=== PATIENT | female | born 1960 | race Caucasian/White ===

== ENCOUNTER 2017-01-30 21:20 | Inpatient (IN) | payer BC ==
[2017-01-31] MEDS ORDERED: ONDANSETRON HCL INJ/PF 4 MG/2 ML SDV IV ONE (02:22)
[2017-01-31] MEDS ORDERED: MORPHINE SULFATE 10 MG/ML INJ IV ONE ×2 (02:22→07:03)
[2017-01-31] MEDS ORDERED: NORMAL SALINE 1000 ML 1,000 ML IV ONE (02:22)
--- NOTE | 2017-01-31 02:23 | ER Document Report ---
ED GI/ - General Chief Complaint: Abdominal Pain Stated Complaint: ABDOMINAL PAIN Time seen by provider: 02:20 Notes: Patient is 56-year-old female that comes emergency department for chief complaint of right upper quadrant pain since Tuesday, she states the pain is worsened, she reports nausea today, she vomited the other day, she was able to eat only applesauce today. She has had an ultrasound within the past week and that she reports told she had gallstones, she is taking hydrocodone prescribed by her primary provider for pain but states this is not helping. Past medical history partial hysterectomy, hypertension, anxiety/depression. TRAVEL OUTSIDE OF THE [place] IN LAST 30 DAYS: No - Related Data Allergies/Adverse Reactions: meperidine [From Demerol] Allergy (Verified 01/31/17 03:11) Home Medications: Current Home Medications Bupropion HCl [Bupropion HCl Sr] 1 tab PO BID 01/31/17 [History] Fluoxetine HCl 1 cap PO DAILY 01/31/17 [History] Hydrocodone Bit/Acetaminophen [Hydrocodon-Acetaminophn 10-325] 1 each PO Q6HP PRN 01/31/17 [History] Lisinopril/Hydrochlorothiazide [Lisinopril-Hctz 10-12.5 mg Tab] 1 each PO DAILY 01/31/17 [History] Omeprazole 1 cap PO DAILY 01/31/17 [History] Past Medical History - General Information source: Patient - Social History Smoking Status: Never Smoker Frequency of alcohol use: None Drug Abuse: None Lives with: Family Family History: Reviewed & Not Pertinent Patient has suicidal ideation: No Patient has homicidal ideation: No - Past Medical History Cardiac Medical History: Reports: Hx Hypertension Renal/ Medical History: Denies: Hx Peritoneal Dialysis Past Surgical History: Reports: Hx Hysterectomy - Partial hysterectomy - Immunizations Immunizations up to date: Yes Hx Diphtheria, Pertussis, Tetanus Vaccination: Yes Review of Systems - Review of Systems Constitutional: No symptoms reported EENT: No symptoms reported Cardiovascular: No symptoms reported Respiratory: No symptoms reported Gastrointestinal: See HPI Genitourinary: No symptoms reported Female Genitourinary: No symptoms reported Musculoskeletal: No symptoms reported Skin: No symptoms reported Hematologic/Lymphatic: No symptoms reported Neurological/Psychological: No symptoms reported Physical Exam - Vital signs Vitals: Temp Pulse Resp BP Pulse Ox 98.8 F 104 H 18 116/73 97 01/30/17 21:54 01/30/17 21:54 01/30/17 21:54 01/30/17 21:54 01/30/17 21:54 Interpretation: Normal - General General appearance: Anxious In distress: Mild - patient appears to be in some pain - HEENT Head: Normocephalic, Atraumatic Eyes: Normal Pupils: PERRL - Respiratory Respiratory status: No respiratory distress Chest status: Nontender Breath sounds: Normal. No: Decreased air movement, Wheezing - Cardiovascular Rhythm: Regular, Tachycardia - borderline Heart sounds: Normal auscultation, S1 appreciated, S2 appreciated Murmur: No - Abdominal Inspection: Normal Distension: No distension Bowel sounds: Normal Tenderness: Tender - guarding in RUQ, Pruett's sign Organomegaly: No organomegaly - Back Back: Normal, Nontender. No: Tender - Extremities General upper extremity: Normal inspection, Nontender, Normal color, Normal ROM , Normal temperature General lower extremity: Normal inspection, Nontender, Normal color, Normal ROM , Normal temperature, Normal weight bearing. 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 The remaining abdomen is benign. Mild leukocytosis with elevation of neutrophils. Ultrasound shows cholelithiasis without pericholecystic fluid or wall thickening. No ductal dilation. Chemistries unremarkable including lipase. Patient requiring additional doses of pain medication, remains in some degree of pain. Patient evaluated by Dr. Delgado, surgery, patient will be admitted to the hospital, given dose of Unasyn. - Vital Signs Vital signs: Temp Pulse Resp BP Pulse Ox 98.4 F 85 18 122/65 96 01/31/17 06:40 01/31/17 06:40 01/31/17 06:40 01/31/17 06:40 01/31/17 06:40 - Laboratory Result Diagrams: 05/01/17 02:50 01/31/17 02:50 Laboratory results interpreted by me: 01/31/17 01/31/17 01/31/17 02:50 02:50 02:50 WBC 13.4 H MCH 26.3 L RDW 15.8 H Seg Neutrophils % 80.0 H Absolute Neutrophils 10.7 H Sodium 136.0 L Chloride 92 L Est GFR (Non-Af Amer) 53 L Direct Bilirubin 0.6 H Urine Ketones TRACE H Urine Urobilinogen 4.0 H Discharge - Discharge Clinical Impression: Right upper quadrant pain, Nausea Cholelithiasis Qualifiers: Cholelithiasis location: gallbladder Cholecystitis presence: without cholecystitis Biliary obstruction: without biliary obstruction Qualified Code(s) : K80.20 - Calculus of gallbladder without cholecystitis without obstruction Leukocytosis Qualifiers: Leukocytosis type: unspecified Qualified Code(s): D72.829 - Elevated white blood cell count, unspecified Condition: Stable Disposition: ADMITTED INPATIENT Admitting Provider: Surgicalist Unit Admitted: OR
[2017-01-31 03:07] LABS: ABSOLUTE EOSINOPHILS # (AUTO) 0.1 10^3/uL (0.0-0.6); ABSOLUTE LYMPHOCYTES (AUTO) 1.9 10^3/uL (0.5-4.7); ABSOLUTE MONOCYTES (AUTO) 0.7 10^3/uL (0.1-1.4); ABSOLUTE NEUT (AUTO) 10.7 10^3/uL (1.7-8.2); BASOPHILS % (AUTO) 0.3 % (0-2); EOSINOPHILS % (AUTO) 0.4 % (0-6); HEMATOCRIT 37.3 % (36.0-47.0); HEMOGLOBIN 12.3 g/dL (12.0-15.5); HGB HCT DIFFERENCE -0.4; MEAN CORPUSCULAR HEMOGLOBIN 26.3 pg (27.0-33.4); MEAN CORPUSCULAR HGB CONC 32.9 g/dL (32.0-36.0); MEAN CORPUSCULAR VOLUME 80 fl (80-97); MONOCYTES % (AUTO) 5.3 % (3-13); RED BLOOD COUNT 4.66 10^6/uL (3.72-5.28); RED CELL DISTRIBUTION WIDTH 15.8 % (11.5-14.0); WHITE BLOOD COUNT 13.4 10^3/uL (4.0-10.5)
[2017-01-31 03:25] LABS: ALANINE AMINOTRANSFERASE 32 U/L (9-52); ALBUMIN 4.2 g/dL (3.5-5.0); ALKALINE PHOSPHATASE 108 U/L (38-126); ANION GAP 14 (5-19); ASPARTATE AMINO TRANSFERASE 28 U/L (14-36); BILIRUBIN,DIRECT 0.6 mg/dL (0.0-0.4); BILIRUBIN,TOTAL 1.1 mg/dL (0.2-1.3); BLOOD UREA NITROGEN 17 mg/dL (7-20); CALCIUM 10.1 mg/dL (8.4-10.2); CARBON DIOXIDE 30 mmol/L (22-30); CHLORIDE 92 mmol/L (98-107); CREATININE RESULT 1.07 mg/dL (0.52-1.25); GLUCOSE 109 mg/dL (75-110); LIPASE 78.7 U/L (23-300); POTASSIUM 3.8 mmol/L (3.6-5.0); TOTAL PROTEIN 7.7 g/dL (6.3-8.2)
[2017-01-31 03:55] LABS: APPEARANCE,URINE SLIGHTLY-CLOUDY; BILIRUBIN,URINE NEGATIVE (NEGATIVE); GLUCOSE, URINE NEGATIVE (NEGATIVE); KETONES,URINE TRACE mg/dL (NEGATIVE); LEUKOCYTE ESTERASE,URINE NEGATIVE (NEGATIVE); NITRITE,URINE NEGATIVE (NEGATIVE); PROTEIN,URINE NEGATIVE (NEGATIVE); URINE SPECIFIC GRAVITY 1.016
[2017-01-31] MEDS ORDERED: NORMAL SALINE 1000 ML 1,000 ML IV PRN (04:19)
[2017-01-31] MEDS ORDERED: ONDANSETRON HCL INJ/PF 4 MG/2 ML SDV IV PRN (08:05)
[2017-01-31] MEDS ORDERED: AMPICILLIN SOD/SULBACTAM 3 GM VIAL IV ONE (08:10)
[2017-01-31] MEDS ORDERED: AMPICILLIN SOD/SULBACTAM 3 GM VIAL IV SCH (08:15)
--- NOTE | 2017-01-31 08:59 | HISTORY AND PHYSICAL E ---
History and Physical NAME: NADIYA NO : 1960 AGE: 56Y ADMITTED: 01/31/2017 ROOM: ED21 REASON FOR ADMISSION: Acute abdominal pain. HISTORY OF PRESENT ILLNESS: The patient is a 56-year-old female who has been having right upper quadrant abdominal pain starting 3 days ago. This is the first time she has had the pain. The pain has been continuous. She has had nausea, but no vomiting. She denies any history of ulcers, but does have reflux and is on omeprazole. She has not had any diarrhea or constipation. She denies any history of jaundice. PAST SURGICAL HISTORY: 1. Tubal ligation. 2. Hysterectomy. MEDICAL PROBLEMS: 1. Gastroesophageal reflux disease. 2. Hypertension. 3. Anxiety/depression. MEDICATIONS: 1. Omeprazole. 2. Lisinopril. 3. Fluoxetine. 4. Wellbutrin. 5. Hydrocodone. ALLERGIES: DEMEROL. SOCIAL HISTORY: The patient is . FAMILY HISTORY: Noncontributory. REVIEW OF SYSTEMS: A complete review of systems was obtained. Pertinent positives are: GASTROINTESTINAL: Abdominal pain and gastroesophageal reflux disease. PSYCHOLOGICAL: Anxiety, depression. CARDIOVASCULAR: Hypertension. Twelve-point review of systems was obtained with pertinent positives discussed and all others being negative. PHYSICAL EXAMINATION: VITAL SIGNS: Temperature is 98.4, pulse 85, blood pressure 122/65, respirations 18. GENERAL: The patient is lying in bed. She is in minimal distress. EYES: Nonicteric. NECK: No lymphadenopathy. HEART: Regular. LUNGS: Clear. BACK: Nontender. ABDOMEN: Soft, tender in right upper quadrant. She has a low transverse infraumbilical incision and a midline lower abdominal incisional scars without evidence of hernias. EXTREMITIES: No edema, cyanosis. NEUROLOGICAL: Patient appears to be neurologically intact without any deficits. PSYCHOLOGICAL: Patient is coherent, cooperative, and appears to answer questions fully. DIAGNOSTIC DATA: Ultrasound of the abdomen reveals a gallbladder with gallstones and a positive Pruett's sign. There is no intrahepatic or extrahepatic duct dilation. White blood cell count 13.4, hemoglobin 12, platelets 308. Liver function tests: Direct bilirubin 0.6, total bilirubin 1.1. AST, ALT and alkaline phosphatase normal, along with lipase. ASSESSMENT: 1. Right upper quadrant abdominal pain, probably secondary to acute cholecystitis. Recommend the patient be admitted to the hospital and undergo laparoscopic cholecystectomy, possible laparotomy. The risks and potential complications of surgery have been explained to her and include but are not limited to bleeding, infection, anesthesia risks, heart/lung problems, wound healing problems, other intraabdominal problems needing intervention, injury to abdominal structures such as common bile duct or intestine causing morbidity and possibly mortality or need for further surgery, hernia formation, postcholecystectomy syndrome. The patient accepts the risks and wished to proceed. No guarantees were given or implied. 2. Hypertension, controlled. 3. Anxiety/depression, on medication. PLAN: 1. The patient will be observation. 2. Laparoscopic cholecystectomy, possible laparotomy. 3. Preoperative IV antibiotics. 4. IV fluids. DICTATING PHYSICIAN: NICOLE SALAS M.D. [id number] PHY#: [id number] ID: [id number] JOB#: [id number] ACCT: [id number] cc:NO Amber MIGUEL
[2017-01-31] MEDS: AMPICILLIN SODIUM/SULBACTAM NA 3 GM in NORMAL SALINE 100 ML IV SCH ×3 (09:32→21:04)
[2017-01-31] MEDS ORDERED: (PENDING PHARMACY ID) (Lisinopril/Hydrochlorothiazide [Lisinopril-Hctz 10-12.5 Mg Tab] 1 E PO SCH (10:00)
[2017-01-31] MEDS ORDERED: NEOSTIGMINE METHYLSULFATE 10 MG/10 ML VIAL ONE (10:21)
[2017-01-31] MEDS ORDERED: METOCLOPRAMIDE HCL INJ/PF 10 MG/2 ML SDV ONE (10:21)
[2017-01-31] MEDS ORDERED: LIDOCAINE 2% INJ-PF (20 MG/ML) 10 ML AMPUL ONE (10:21)
[2017-01-31] MEDS ORDERED: GLYCOPYRROLATE INJ 0.4 MG/2 ML VIAL ONE (10:21)
[2017-01-31] MEDS ORDERED: SUCCINYLCHOLINE CHLORIDE INJ 200 MG/10 ML VIAL ONE (10:21)
[2017-01-31] MEDS ORDERED: ROCURONIUM BROMIDE INJ 50 MG/5 ML VIAL IV ONE (10:21)
[2017-01-31] MEDS ORDERED: ONDANSETRON HCL INJ/PF 4 MG/2 ML SDV ONE (10:21)
[2017-01-31] MEDS: LISINOPRIL 10 MG TABLET PO SCH (10:51)
[2017-01-31] MEDS: HYDROCHLOROTHIAZIDE 12.5 MG CAPSULE PO SCH (10:51)
[2017-01-31] MEDS: PANTOPRAZOLE SODIUM 40 MG VIAL IV SCH ×2 (11:25→22:31)
[2017-01-31] MEDS ORDERED: BUPIVACAINE HCL 0.5%-EPI 1:200000 INJ/PF 30 ML VIAL ONE (13:03)
[2017-01-31] MEDS ORDERED: LIDOCAINE 1% INJ-PF (10 MG/ML) 30 ML SDV ONE (13:03)
[2017-01-31] MEDS ORDERED: PROPOFOL INJ 200 MG/20 ML VIAL IV ONE (14:24)
[2017-01-31] MEDS ORDERED: FENTANYL CITRATE INJ/PF 250 MCG/5 ML AMPULE ONE (14:24)
[2017-01-31] MEDS ORDERED: MIDAZOLAM 2 MG/2 ML INJ ONE (14:24)
[2017-01-31] MEDS ORDERED: MORPHINE SULFATE 10 MG/ML INJ ONE (14:25)
[2017-01-31] MEDS ORDERED: ACETAMINOPHEN 100 ML IV ONE (14:25)
[2017-01-31] MEDS ORDERED: DIPHENHYDRAMINE HCL 50 MG/ML VIAL IV PRN (15:20)
[2017-01-31] MEDS ORDERED: FENTANYL CITRATE INJ/PF 100 MCG/2 ML AMPUL IV PRN ×3 (15:20)
[2017-01-31] MEDS ORDERED: OXYCODONE-ACETAMINOPHEN 5-325 MG TABLET PO PRN ×2 (15:20)
[2017-01-31] MEDS ORDERED: MEPERIDINE HCL/PF INJ 25 MG/1 ML DISP.SYRIN IV PRN (15:20)
[2017-01-31] MEDS ORDERED: PROMETHAZINE HCL INJ 25 MG/1 ML VIAL IV PRN ×2 (15:20)
[2017-01-31] MEDS ORDERED: MORPHINE SULFATE 10 MG/ML INJ IV PRN (15:20)
[2017-01-31] MEDS ORDERED: FENTANYL CITRATE INJ/PF 100 MCG/2 ML AMPUL ONE (16:46)
[2017-01-31] MEDS ORDERED: GLUCAGON,HUMAN RECOMB 1 MG INJ SUBCUT PRN (18:09)
[2017-01-31] MEDS ORDERED: DEXTROSE 40% GEL 15 GM TUBE PO PRN ×2 (18:09)
[2017-01-31] MEDS ORDERED: DEXTROSE 50%-WATER 25 GM/50 ML DISP.SYRIN IV PRN ×2 (18:09)
[2017-01-31] MEDS ORDERED: HYDROMORPHONE HCL 30 MG/60 ML RTUINJ IV PRN (18:18)
[2017-01-31 19:42] LABS: ABSOLUTE LYMPHOCYTES (AUTO) 1.1 10^3/uL (0.5-4.7); ABSOLUTE MONOCYTES (AUTO) 0.5 10^3/uL (0.1-1.4); BASOPHILS % (AUTO) 0.3 % (0-2); EOSINOPHILS % (AUTO) 0.3 % (0-6); HEMATOCRIT 31.3 % (36.0-47.0); HEMOGLOBIN 10.3 g/dL (12.0-15.5); HGB HCT DIFFERENCE -0.4; LYMPHOCYTES % (AUTO) 12.8 % (13-45); MEAN CORPUSCULAR HEMOGLOBIN 26.3 pg (27.0-33.4); MEAN CORPUSCULAR HGB CONC 32.8 g/dL (32.0-36.0); MEAN CORPUSCULAR VOLUME 80 fl (80-97); MONOCYTES % (AUTO) 5.8 % (3-13); RED BLOOD COUNT 3.91 10^6/uL (3.72-5.28); RED CELL DISTRIBUTION WIDTH 15.8 % (11.5-14.0); SEGMENTED NEUTROPHILS % (AUTO) 80.8 % (42-78); WHITE BLOOD COUNT 8.7 10^3/uL (4.0-10.5)
[2017-01-31] MEDS: HYDROMORPHONE HCL INJ/PF 2 MG/ML AMPULE IV PRN (20:30)
[2017-01-31] MEDS: NORMAL SALINE 1000 ML 1,000 ML IV PRN (21:05)
[2017-02-01] MEDS: AMPICILLIN SODIUM/SULBACTAM NA 3 GM in NORMAL SALINE 100 ML IV SCH ×3 (02:10→16:45)
[2017-02-01 06:36] LABS: HEMATOCRIT 30.6 % (36.0-47.0); HGB HCT DIFFERENCE -0.6; MEAN CORPUSCULAR HEMOGLOBIN 26.2 pg (27.0-33.4); MEAN CORPUSCULAR HGB CONC 32.8 g/dL (32.0-36.0); MEAN CORPUSCULAR VOLUME 80 fl (80-97); RED BLOOD COUNT 3.83 10^6/uL (3.72-5.28); RED CELL DISTRIBUTION WIDTH 16.3 % (11.5-14.0); WHITE BLOOD COUNT 11.2 10^3/uL (4.0-10.5)
[2017-02-01 07:01] LABS: ALANINE AMINOTRANSFERASE 122 U/L (9-52); ALKALINE PHOSPHATASE 108 U/L (38-126); ANION GAP 12 (5-19); ASPARTATE AMINO TRANSFERASE 119 U/L (14-36); BILIRUBIN,DIRECT 0.4 mg/dL (0.0-0.4); BILIRUBIN,TOTAL 0.7 mg/dL (0.2-1.3); BLOOD UREA NITROGEN 16 mg/dL (7-20); CALCIUM 8.8 mg/dL (8.4-10.2); CARBON DIOXIDE 25 mmol/L (22-30); CHLORIDE 102 mmol/L (98-107); CREATININE RESULT 0.77 mg/dL (0.52-1.25); GLUCOSE 106 mg/dL (75-110); POTASSIUM 4.2 mmol/L (3.6-5.0); TOTAL PROTEIN 5.6 g/dL (6.3-8.2)
[2017-02-01] MEDS: PANTOPRAZOLE SODIUM 40 MG VIAL IV SCH ×2 (09:20→21:57)
[2017-02-01] MEDS: HYDROCHLOROTHIAZIDE 12.5 MG CAPSULE PO SCH (09:24)
[2017-02-01] MEDS: LISINOPRIL 10 MG TABLET PO SCH (09:25)
[2017-02-01] MEDS ORDERED: DEXTROSE 40% GEL 15 GM TUBE PO PRN ×2 (17:22)
[2017-02-01] MEDS ORDERED: DEXTROSE 50%-WATER 25 GM/50 ML DISP.SYRIN IV PRN ×2 (17:22)
[2017-02-01] MEDS ORDERED: GLUCAGON,HUMAN RECOMB 1 MG INJ SUBCUT PRN (17:22)
--- NOTE | 2017-02-02 01:08 | PROGRESS NOTE E ---
Progress Note NAME: NADIYA NO : 1960 AGE: 56Y DATE: 02/01/2017 ROOM: 209 The patient is postoperative day 1 from open cholecystectomy for acute gangrenous cholecystitis. Intraoperative cholangiogram was performed, which showed a filling defect being present, distal common bile duct compatible with a stone. SUBJECTIVE: The patient is having adequate pain control with her MEAT MANAGER. She denies any nausea or vomiting. OBJECTIVE: ABDOMEN: The patient's abdominal incision dressing is clean without any evidence of infection. HEART: Regular. LUNGS: Coarse crackles in the bases. DIAGNOSTIC DATA: White blood cell count 11, hemoglobin 10, AST 119, ALT 122, alk phos 108, total bilirubin of 0.7. ASSESSMENT: 1. STATUS POST OPEN CHOLECYSTECTOMY FOR ACUTE GANGRENOUS CHOLECYSTITIS. The AYAKA drain is serosanguineous. Her pain control is adequate with MEAT MANAGER. She needs mobilization, coughing and deep breathing. 2. DISTAL COMMON BILE DUCT OBSTRUCTION SECONDARY TO GALLSTONES. PLAN: 1. Gastroenterology consult for ERCP. 2. Continue IV antibiotics. 3. Mobilization, coughing, and deep breathing. DICTATING PHYSICIAN: NICOLE SALAS M.D. [id number] ANDREIA#: [id number] ID: [id number] JOB#: [id number] ACCT: [id number] cc: >
[2017-02-02] MEDS: AMPICILLIN SODIUM/SULBACTAM NA 3 GM in NORMAL SALINE 100 ML IV SCH ×5 (01:10→22:11)
[2017-02-02 06:28] LABS: HEMOGLOBIN 8.6 g/dL (12.0-15.5); HGB HCT DIFFERENCE -0.2; MEAN CORPUSCULAR HEMOGLOBIN 26.5 pg (27.0-33.4); MEAN CORPUSCULAR HGB CONC 33.2 g/dL (32.0-36.0); MEAN CORPUSCULAR VOLUME 80 fl (80-97); RED BLOOD COUNT 3.26 10^6/uL (3.72-5.28); RED CELL DISTRIBUTION WIDTH 15.8 % (11.5-14.0); WHITE BLOOD COUNT 11.9 10^3/uL (4.0-10.5)
[2017-02-02 06:55] LABS: ALANINE AMINOTRANSFERASE 85 U/L (9-52); ALKALINE PHOSPHATASE 101 U/L (38-126); ANION GAP 12 (5-19); ASPARTATE AMINO TRANSFERASE 49 U/L (14-36); BILIRUBIN,DIRECT 0.3 mg/dL (0.0-0.4); BILIRUBIN,TOTAL 0.6 mg/dL (0.2-1.3); BLOOD UREA NITROGEN 15 mg/dL (7-20); CALCIUM 8.9 mg/dL (8.4-10.2); CARBON DIOXIDE 27 mmol/L (22-30); CHLORIDE 98 mmol/L (98-107); CREATININE RESULT 0.71 mg/dL (0.52-1.25); GLUCOSE 103 mg/dL (75-110); POTASSIUM 3.5 mmol/L (3.6-5.0); SODIUM 136.5 mmol/L (137-145); TOTAL PROTEIN 5.6 g/dL (6.3-8.2)
[2017-02-02] MEDS: PANTOPRAZOLE SODIUM 40 MG VIAL IV SCH ×2 (10:43→22:26)
[2017-02-02] MEDS: LISINOPRIL 10 MG TABLET PO SCH (10:44)
[2017-02-02] MEDS: HYDROCHLOROTHIAZIDE 12.5 MG CAPSULE PO SCH (10:48)
[2017-02-02] MEDS ORDERED: SUCCINYLCHOLINE CHLORIDE INJ 200 MG/10 ML VIAL ONE (13:22)
[2017-02-02] MEDS: NORMAL SALINE 1000 ML 1,000 ML IV PRN (15:04)
[2017-02-02] MEDS ORDERED: HYDROMORPHONE HCL INJ/PF 2 MG/ML AMPULE IV PRN (16:39)
[2017-02-02] MEDS ORDERED: ONDANSETRON HCL INJ/PF 4 MG/2 ML SDV ONE (17:46)
[2017-02-02] MEDS ORDERED: MIDAZOLAM 2 MG/2 ML INJ ONE (17:46)
[2017-02-02] MEDS ORDERED: DEXAMETHASONE SOD PHOSPHATE INJ 4 MG/1 ML VIAL ONE (17:46)
[2017-02-02] MEDS ORDERED: FENTANYL CITRATE INJ/PF 100 MCG/2 ML AMPUL ONE ×2 (17:46)
[2017-02-02] MEDS ORDERED: PROPOFOL INJ 200 MG/20 ML VIAL IV ONE (17:47)
[2017-02-02] MEDS ORDERED: OXYCODONE-ACETAMINOPHEN 5-325 MG TABLET PO PRN ×2 (18:40)
[2017-02-02] MEDS ORDERED: PROMETHAZINE HCL INJ 25 MG/1 ML VIAL IV PRN ×2 (18:40)
[2017-02-02] MEDS ORDERED: DIPHENHYDRAMINE HCL 50 MG/ML VIAL IV PRN (18:40)
[2017-02-02] MEDS ORDERED: MORPHINE SULFATE 10 MG/ML INJ IV PRN (18:40)
[2017-02-02] MEDS ORDERED: MEPERIDINE HCL/PF INJ 25 MG/1 ML DISP.SYRIN IV PRN (18:40)
[2017-02-02] MEDS ORDERED: FENTANYL CITRATE INJ/PF 100 MCG/2 ML AMPUL IV PRN ×3 (18:40)
[2017-02-02] MEDS ORDERED: GLUCAGON,HUMAN RECOMB 1 MG INJ ONE (18:55)
--- NOTE | 2017-02-02 19:33 | CONSULTATION REPORT E ---
Consultation Report NAME: NADIYA NO : 1960 AGE: 56Y DATE: 02/01/2017 ROOM: 209 A TO: JUANITO RODRIGEZ M.D. FROM: DR. SALAS Requesting Physician HISTORY: This is a 56-year-old patient who was admitted on 01/31/2017 with abdominal pain and nausea. She had an ultrasound that showed gallstones with no pericholecystic fluid. Pruett sign was positive. LFTs were normal on admission. She underwent open cholecystectomy on 02/01/2017 and an intraoperative cholangiogram showed a stone in the distal common bile duct. Her LFTs did increase postoperatively with AST of 119, ALT of 122, and normal bilirubin. Lipase was normal on admission. Consultation was requested for ERCP. PAST MEDICAL HISTORY: 1. Reflux disease. 2. Hypertension. 3. Depression. PAST SURGICAL HISTORY: 1. Tubal ligation. 2. Hysterectomy. 3. Open cholecystectomy. ALLERGIES: DEMEROL. SOCIAL HISTORY: Noncontributory. REVIEW OF SYSTEMS: Other than the above is noncontributory. PHYSICAL EXAMINATION: GENERAL: Shows the patient in no distress. VITAL SIGNS: She has a blood pressure of 150/80 and heart rate of 85. HEENT: There is no pallor or jaundice. Oropharynx normal. NECK: No bruit. No JVD. CHEST: No deformity. LUNGS: Clear. ABDOMEN: Soft and obese. There is a dressing from her recent surgery in the right upper quadrant. Bowel sounds are active. NEUROLOGIC: Grossly nonfocal. DIAGNOSTICS: Other laboratory tests showed a normal CBC on admission, except for a high white count with a left shift. ASSESSMENT AND PLAN: 1. Abnormal intraoperative cholangiogram. The need for an ERCP was explained to the patient, and she is in agreement. She does have a AYAKA drain in place. 2. Fatty liver. Part of her liver was removed with the gallbladder and this indicated steatosis. DICTATING PHYSICIAN: JUANITO RODRIGEZ M.D. [id number] [id number] PHY#: [id number] ID: [id number] JOB#: [id number] ACCT: [id number] cc:JUANITO RODRIGEZ M.D. >
[2017-02-02] MEDS ORDERED: ALBUTEROL SULFATE 0.083% NEB 2.5 MG/3 ML AMPUL NEB ONE (19:35)
--- NOTE | 2017-02-02 19:44 | OPERATIVE REPORT E ---
Operative Report NAME: NADIYA NO : 1960 AGE: 56Y DATE OF SURGERY: 02/02/2017 ROOM: 209 PREOPERATIVE DIAGNOSIS: Abnormal intraoperative cholangiogram. POSTOPERATIVE DIAGNOSIS: Common bile duct sludge. OPERATION: ERCP with sphincterotomy and balloon sludge extraction. SURGEON: JUANITO RODRIGEZ M.D. ANESTHESIA: As per Anesthesia. TISSUE REMOVED OR ALTERED: None. PROCEDURE: After informed consent was obtained from patient, she was placed under general anesthesia. The ERCP endoscope was then inserted into the esophagus and advanced to the duodenum. Common ampulla was identified and cannulated with a triple-lumen *------* catheter. A partial pancreatogram was initially obtained, and this was normal. The common bile duct was then freely cannulated. The cholangiogram showed mildly dilated common bile duct but no definite filling defect. A good-sized sphincterotomy was then performed using the Endocut mode. The catheter was removed over the guidewire and replaced with a 12 mm balloon catheter. This was inflated in the proximal duct and pulled down the duct. Some sludge was extracted. The duct was cleared one more time, and the balloon occlusion cholangiogram was normal. She tolerated the procedure well. DICTATING PHYSICIAN: JUANITO RODRIGEZ M.D. [id number] Y#: [id number] ID: [id number] JOB#: [id number] ACCT: [id number] cc:JUANITO RODRIGEZ M.D. >
--- NOTE | 2017-02-02 23:13 | PROGRESS NOTE E ---
Progress Note NAME: NADIYA NO : 1960 AGE: 56Y DATE: 02/02/2017 ROOM: 209 SUBJECTIVE: The patient is 2 days out from an open cholecystectomy with the patient having a distal common bile duct obstruction, most likely secondary to stones. The patient is doing better and breathing easier. Pain is controlled with her LEADERSHIP INTERN pump. She denies any nausea and vomiting. OBJECTIVE: The patient's incision is clean. She is now having bile out through a AYAKA drain. No significant tenderness. VITALS: Temperature 99, pulse 96, blood pressure 143/68. DIAGNOSTIC DATA: White blood cell count 11.9, hemoglobin 8.6, platelets of 271. AST 49, alkaline phos of 85. ASSESSMENT: 1. STATUS POST OPEN CHOLECYSTECTOMY FOR ACUTE CHOLECYSTITIS. Her hemoglobin did drop down to 8.6 and will continue to follow. At the current time she is not symptomatic from the anemia. Her abdominal incisions are healing well. Her AYAKA drain has put out bilious fluid, most likely from the biliary tract obstruction causing increased pressure in the biliary tree with leakage. Continue pain control. 2. DISTAL COMMON BILE DUCT OBSTRUCTION. She will be undergoing ERCP later on today. She is having bile out through her AYAKA drain. This most likely is due to pressure in the biliary tree with leakage. Once she has the ERCP and removal of blockage along with sphincterotomy and stent placement, this should resolve. I would recommend continuing her on IV antibiotics at the current time. PLAN: 1. N.p.o. 2. IV fluids. 3. IV antibiotics. 4. ERCP. 5. Continue AYAKA drain. 6. Continue incentive spirometer and deep breathing. DICTATING PHYSICIAN: NICOLE SALAS M.D. [id number] PHY#: [id number] ID: [id number] JOB#: [id number] ACCT: [id number] cc: >
[2017-02-03] MEDS: HYDROMORPHONE HCL INJ/PF 2 MG/ML AMPULE IV PRN ×3 (02:16→19:34)
[2017-02-03] MEDS: AMPICILLIN SODIUM/SULBACTAM NA 3 GM in NORMAL SALINE 100 ML IV SCH ×4 (02:16→20:54)
--- NOTE | 2017-02-03 03:49 | OPERATIVE REPORT E ---
Operative Report NAME: NADIYA NO : 1960 AGE: 56Y DATE OF SURGERY: 01/31/2017 ROOM: 209 PREOPERATIVE DIAGNOSIS: ACUTE CHOLECYSTITIS. POSTOPERATIVE DIAGNOSIS: 1. ACUTE GANGRENOUS CHOLECYSTITIS. 2. DISTAL COMMON BILE DUCT OBSTRUCTION, PROBABLY SECONDARY TO GALLSTONES. 3. VENTRAL INCISIONAL HERNIA. OPERATION: Attempted laparoscopic cholecystectomy converted to an open cholecystectomy with intraoperative cholangiogram. SURGEON: NICOLE SALAS M.D. ANESTHESIA: General. INDICATIONS FOR PROCEDURE: Patient is a 56-year-old female who presents with 2-day history of right upper quadrant abdominal pain. Ultrasound of the abdomen revealed gallbladder with gallstones. She had an elevated white count and clinically had acute cholecystitis. FINDINGS OF THE PROCEDURE: Patient had acute gangrenous cholecystitis. Patient had a long neck to her gallbladder going into an inflamed area near the common bile duct. I could not do a cholangiogram due to enlarged nature of the cystic duct and therefore, patient was converted to an open cholecystectomy. Also patient had a gangrenous gallbladder, which made grabbing it and using it for retraction difficult. An intraoperative cholangiogram was performed, which showed a distal filling defect in the common bile duct. Due to not having sufficient resources, an open common bile duct exploration was not performed with the patient planning on getting an ERCP postoperatively. PROCEDURE: After informed consent was obtained, the patient was taken to the operating room and placed in the supine position. General endotracheal anesthesia was administered. The patient's abdomen was then prepped and draped in the usual sterile fashion. An incision was then made in the right subcostal area and a 5-mm Optiview trocar was then inserted through the incision, through the fascia and into the abdominal cavity under direct vision. The abdomen was then insufflated. Looking inside, no injuries were noted. Looking at the umbilical area where she had previous surgeries, a ventral incisional hernia was identified. Because of this, I decided to place the 12-mm port above the umbilicus away from the ventral incisional hernia. This was placed through the skin incision and fascia under direct vision. Two further right upper quadrant 5-mm ports were then placed under direct vision. The patient's gallbladder was distended. A needle was then inserted in the gallbladder draining it of its fluid content. The gallbladder was then grasped in the fundus area lifting it anteriorly and superiorly. The gallbladder was very inflamed. There is significant amount of omental adhesions, which were taken down bluntly and using electrocautery. The patient had a very large cystic node covering the Pito's pouch and cystic duct medially. Care was taken to carefully peel this off the gallbladder. The anatomy was difficult with the cystic duct or long neck of the gallbladder curling upon itself next to the gallbladder. I was able to carefully tease this away. Because of the large nature of this structure and inability to obtain a cholangiogram, I decided to perform an open cholecystectomy. The 12-mm port in the supraumbilical area was then closed using a suture passer. The ports were then removed and the abdomen was then desufflated. A right subcostal incision was then made on the skin using the scalpel. It was carried down to the anterior rectus sheath, which was incised along with the rectus muscle and posterior rectus sheath. Appropriate retractors were placed. The gallbladder was then grasped and the inflammatory outer covering incised around the liver. The gallbladder was then bluntly dissected away from the liver. This was done down to the cystic duct freeing up the entire gallbladder. The gallbladder-cystic duct junction was then divided with the gallbladder then being removed. Cystic artery was clipped doubly. A cholangiogram catheter was then inserted in the cystic duct and a cholangiogram was then performed. This showed the distal filling defect in the common bile duct. Without the appropriate equipment, I cannot do a common bile duct exploration. I felt that ERCP would the best way to go for an evaluation of this distal common bile duct obstruction and relieving it. The cystic duct was then tied using a 3-0 silk suture and then a large clip was placed across it. The patient had a very large common bile duct and we did not encroach upon it. A 15 round AYAKA drain was then placed through one of the previously placed port incisions and into the gallbladder bed. The posterior rectus sheath and anterior were then closed using running #1 PDS suture. The wound was irrigated. The skin incisions were closed with pancho and dry dressing was placed on top. The patient was then awakened, extubated and taken from the operating room in stable condition. ESTIMATED BLOOD LOSS: 500 mL. COMPLICATIONS: None. CONDITION: The patient at the end of the procedure was stable. SPECIMENS: gallbladder with gallstones. CLASSIFICATION OF WOUND: Contaminated. DRAINS/PACKS: One drain was placed intraabdominally. DICTATING PHYSICIAN: NICOLE SALAS M.D. [id number] PHY#: [id number] ID: [id number] JOB#: [id number] ACCT: [id number] cc:NICOLE SALAS M.D. > MTDD
[2017-02-03 06:46] LABS: HEMATOCRIT 23.3 % (36.0-47.0); HGB HCT DIFFERENCE 0.4; MEAN CORPUSCULAR HEMOGLOBIN 26.6 pg (27.0-33.4); MEAN CORPUSCULAR HGB CONC 33.7 g/dL (32.0-36.0); MEAN CORPUSCULAR VOLUME 79 fl (80-97); RED BLOOD COUNT 2.96 10^6/uL (3.72-5.28); RED CELL DISTRIBUTION WIDTH 16.1 % (11.5-14.0); WHITE BLOOD COUNT 9.5 10^3/uL (4.0-10.5)
[2017-02-03 06:48] LABS: HEMOGLOBIN 7.9 g/dL (12.0-15.5)
[2017-02-03 06:57] LABS: ALANINE AMINOTRANSFERASE 65 U/L (9-52); ALBUMIN 2.8 g/dL (3.5-5.0); ALKALINE PHOSPHATASE 101 U/L (38-126); ANION GAP 13 (5-19); ASPARTATE AMINO TRANSFERASE 39 U/L (14-36); BILIRUBIN,DIRECT 0.5 mg/dL (0.0-0.4); BILIRUBIN,TOTAL 0.6 mg/dL (0.2-1.3); BLOOD UREA NITROGEN 12 mg/dL (7-20); CALCIUM 8.8 mg/dL (8.4-10.2); CARBON DIOXIDE 29 mmol/L (22-30); CHLORIDE 98 mmol/L (98-107); CREATININE RESULT 0.65 mg/dL (0.52-1.25); GLUCOSE 96 mg/dL (75-110); LIPASE 106.4 U/L (23-300); POTASSIUM 3.3 mmol/L (3.6-5.0); SODIUM 139.9 mmol/L (137-145); TOTAL PROTEIN 5.5 g/dL (6.3-8.2)
[2017-02-03] MEDS: NORMAL SALINE 1000 ML 1,000 ML IV PRN ×2 (07:55→20:57)
[2017-02-03] MEDS: HYDROCHLOROTHIAZIDE 12.5 MG CAPSULE PO SCH (09:28)
[2017-02-03] MEDS: LISINOPRIL 10 MG TABLET PO SCH (09:29)
[2017-02-04] MEDS: AMPICILLIN SODIUM/SULBACTAM NA 3 GM in NORMAL SALINE 100 ML IV SCH ×4 (02:19→20:14)
[2017-02-04 07:18] LABS: HEMATOCRIT 24.5 % (36.0-47.0); HGB HCT DIFFERENCE -0.5; MEAN CORPUSCULAR HEMOGLOBIN 26.4 pg (27.0-33.4); MEAN CORPUSCULAR HGB CONC 32.8 g/dL (32.0-36.0); MEAN CORPUSCULAR VOLUME 81 fl (80-97); RED BLOOD COUNT 3.04 10^6/uL (3.72-5.28); WHITE BLOOD COUNT 5.7 10^3/uL (4.0-10.5)
[2017-02-04 07:28] LABS: ALANINE AMINOTRANSFERASE 59 U/L (9-52); ALBUMIN 2.6 g/dL (3.5-5.0); ALKALINE PHOSPHATASE 89 U/L (38-126); ANION GAP 11 (5-19); ASPARTATE AMINO TRANSFERASE 27 U/L (14-36); BILIRUBIN,DIRECT 0.3 mg/dL (0.0-0.4); BILIRUBIN,TOTAL 0.4 mg/dL (0.2-1.3); BLOOD UREA NITROGEN 10 mg/dL (7-20); CALCIUM 8.4 mg/dL (8.4-10.2); CARBON DIOXIDE 31 mmol/L (22-30); CHLORIDE 99 mmol/L (98-107); CREATININE RESULT 0.66 mg/dL (0.52-1.25); GLUCOSE 88 mg/dL (75-110); POTASSIUM 3.1 mmol/L (3.6-5.0); SODIUM 141.2 mmol/L (137-145)
[2017-02-04] MEDS: HYDROMORPHONE HCL INJ/PF 2 MG/ML AMPULE IV PRN ×5 (08:15→22:23)
[2017-02-04] MEDS: HYDROCHLOROTHIAZIDE 12.5 MG CAPSULE PO SCH (09:53)
[2017-02-04] MEDS: LISINOPRIL 10 MG TABLET PO SCH (09:53)
--- NOTE | 2017-02-04 10:43 | PROGRESS NOTE E ---
Progress Note NAME: NADIYA NO : 1960 AGE: 56Y DATE: 02/05/2016 ROOM: 219 SUBJECTIVE: Patient is postoperative day 2 from a laparoscopic cholecystectomy. She also underwent a followup ERCP the same day, at approximately midnight. Postoperatively, she has had a touch of bile staining in the AYAKA. There was no leak noted on ERCP. Overnight, she continues to have some very slight bile staining. It is not a significant leak, if there is one in fact present. Subjectively, she is feeling well. She is passing flatus and is on clear liquids. LABORATORY EXAM: Shows a normal white blood count of 5.7. Hematocrit is low at 24.5. Her electrolytes are normal. A slightly low potassium at 3.1. Total bilirubin is 0.4. Direct is 0.3 (within normal limits). AST is 27. ALT is 59 (slightly high). Alk phosphatase is 89, which is normal. The wounds look to be well-healed. She has no complaints of abdominal pain. ASSESSMENT: Doing well postoperatively. We will plan on replacing her potassium orally. We will obtain a HIDA scan to further define if there is in fact a leak present. If there is not, she may go home tomorrow. DICTATING PHYSICIAN: LUCHO WRIGHT M.D. [id number] [id number] PHY#: [id number] ID: [id number] JOB#: [id number] ACCT: [id number] cc: >
[2017-02-04] MEDS ORDERED: POTASSIUM CHLORIDE 10 MEQ TABLET.SA PO ONE (11:00)
[2017-02-04] MEDS: NORMAL SALINE 1000 ML 1,000 ML IV PRN (14:31)
[2017-02-04] MEDS: FERROUS SULFATE 325 MG TABLET PO SCH (17:43)
[2017-02-05] MEDS: AMPICILLIN SODIUM/SULBACTAM NA 3 GM in NORMAL SALINE 100 ML IV SCH ×2 (02:23→09:13)
[2017-02-05] MEDS: HYDROMORPHONE HCL INJ/PF 2 MG/ML AMPULE IV PRN ×2 (02:24→06:35)
[2017-02-05] MEDS: NORMAL SALINE 1000 ML 1,000 ML IV PRN (06:35)
[2017-02-05 06:56] LABS: HEMATOCRIT 25.3 % (36.0-47.0); HEMOGLOBIN 8.4 g/dL (12.0-15.5); HGB HCT DIFFERENCE -0.1; MEAN CORPUSCULAR HEMOGLOBIN 26.4 pg (27.0-33.4); MEAN CORPUSCULAR HGB CONC 33.2 g/dL (32.0-36.0); MEAN CORPUSCULAR VOLUME 80 fl (80-97); RED BLOOD COUNT 3.18 10^6/uL (3.72-5.28); RED CELL DISTRIBUTION WIDTH 16.2 % (11.5-14.0); WHITE BLOOD COUNT 5.8 10^3/uL (4.0-10.5)
[2017-02-05 07:14] LABS: ALANINE AMINOTRANSFERASE 56 U/L (9-52); ALBUMIN 2.8 g/dL (3.5-5.0); ALKALINE PHOSPHATASE 86 U/L (38-126); ANION GAP 10 (5-19); ASPARTATE AMINO TRANSFERASE 28 U/L (14-36); BILIRUBIN,DIRECT 0.4 mg/dL (0.0-0.4); BILIRUBIN,TOTAL 0.5 mg/dL (0.2-1.3); BLOOD UREA NITROGEN 9 mg/dL (7-20); CALCIUM 8.7 mg/dL (8.4-10.2); CARBON DIOXIDE 31 mmol/L (22-30); CHLORIDE 99 mmol/L (98-107); CREATININE RESULT 0.69 mg/dL (0.52-1.25); GLUCOSE 82 mg/dL (75-110); POTASSIUM 3.1 mmol/L (3.6-5.0); SODIUM 139.9 mmol/L (137-145); TOTAL PROTEIN 5.5 g/dL (6.3-8.2)
[2017-02-05] MEDS: FERROUS SULFATE 325 MG TABLET PO SCH (09:14)
[2017-02-05] MEDS: HYDROCHLOROTHIAZIDE 12.5 MG CAPSULE PO SCH (09:14)
[2017-02-05] MEDS: LISINOPRIL 10 MG TABLET PO SCH (09:14)
[2017-02-05 09:26] VITALS: BP 138/82
[2017-02-05] MEDS ORDERED: POTASSIUM CHLORIDE 10 MEQ TABLET.SA PO SCH (10:00)
--- NOTE | 2017-02-05 10:10 | DISCHARGE SUMMARY E ---
Discharge Summary NAME: NADIYA NO : 1960 AGE: 56Y ADMITTED: 01/31/2017 DISCHARGED: 02/05/2017 ADMITTING DIAGNOSIS: Cholecystitis, choledocholithiasis. PROCEDURE PERFORMED: She underwent ERCP. After that she underwent a cholecystectomy. DISCHARGE INSTRUCTIONS: 1. Diet as tolerated. 2. Pain medications: Vicodin or [place] for the pain. 3. Stool softeners. REASON FOR HOSPITAL ADMISSION/HOSPITAL COURSE: The patient was admitted with abdominal pain, cholecystitis, choledocholithiasis. She underwent an ERCP on 02/02/2017. After that she underwent laparoscopic cholecystectomy and cholangiogram, and then she subsequently had a HIDA scan to rule out any bile leak which was negative for bile leak. The patient basically advanced the diet, tolerating that very well, feeling well now at this point. She had AYAKA drain which was pretty serous which was removed, and after that she will go home today and she will follow with the surgical clinic in 2 weeks. At the time of discharge the patient is doing very well. DICTATING PHYSICIAN: NICO MELTON M.D. [id number] [id number] PHY#: [id number] ID: [id number] JOB#: [id number] ACCT: [id number] cc:Teo HILLMAN PA >
== END 2017-02-05 10:50 | disposition home or self-care (01) | DRG 416 ==
LOC: ER 21:20 → EH 01-31 08:05 → UNDOADMOB 01-31 08:21 → 2N 01-31 10:00 → OBSVTOIN 01-31 17:23 → 2S 02-03 17:40
PROVIDERS: ATTEND Colon & Rectal Surgery
PROC: 0FJ44ZZ Inspection of Gallbladder, Percutaneous Endoscopic Approach (ICD-10-PCS; 2017-01-31)
PROC: 0FT40ZZ Resection of Gallbladder, Open Approach (ICD-10-PCS; principal; 2017-01-31 13:45)
PROC: 0F798ZZ Dilation of Common Bile Duct, Via Natural or Artificial Opening Endoscopic (ICD-10-PCS; 2017-02-02)
DX: K80.00 Calculus of gallbladder with acute cholecystitis without obstruction (principal); Z53.31 Laparoscopic surgical procedure converted to open procedure; I10 Essential (primary) hypertension; K21.9 Gastro-esophageal reflux disease without esophagitis; F41.9 Anxiety disorder, unspecified; F32.9 Major depressive disorder, single episode, unspecified; Z79.899 Other long term (current) drug therapy; Z90.710 Acquired absence of both cervix and uterus; Z88.8 Allergy status to other drugs, medicaments and biological substances
CPT/HCPCS: 36415; 43262; 43264; 71020; 740; 74300; 74330; 76705; 78226; 790; 80053; 81001; 83690; 85025; 85027; 86850; 86900; 86901; 87040; 88304; 94799; 96361; 96374; 96375; 99285; A9537; J0131; J0295; J0330; J1100; J1170; J1610; J2250; J2270; J2405; J2704; J2765; J3010; J3490; J7030; Q9969; S0164